=== PATIENT | male | born 1990 | race Hispanic/Latino ===

== ENCOUNTER 2018-09-26 06:32 | Emergency (ER) | payer OTHER ==
[2018-09-26 06:37] VITALS: BMI 23.0
--- NOTE | 2018-09-26 07:37 | ED PDOC ---
HPI: Psych/Substance Abuse Time Seen by Provider: 09/26/18 07:16 Chief Complaint (Nursing): Alcohol Ingestion Chief Complaint (Provider): Alcohol Ingestion History Per: Patient History/Exam Limitations: no limitations Onset/Duration Of Symptoms: Hrs (x 1) Current Symptoms Are (Timing): Still Present Suicide/Self Injury Attempted (Context): None Modifying Factor(s): Alcohol Additional Complaint(s): 28 year old male with no significant medical history presents to the ED via [facility] for evaluation. Patient admits to drinking tonight and wanted to go home. Denies fall, pain, LOC, shortness of breath, nausea and vomiting. PMD: none provided Past Medical History Reviewed: Historical Data, Nursing Documentation, Vital Signs Vital Signs: Last Vital Signs Temp 97.7 F 09/26/18 06:43 Pulse 113 H 09/26/18 06:43 Resp 16 09/26/18 06:43 BP 157/93 H 09/26/18 06:43 Pulse Ox 96 09/26/18 06:43 - Medical History PMH: No Chronic Diseases - Surgical History Surgical History: No Surg Hx - Family History Family History: States: Unknown Family Hx - Social History Current smoker - smoking cessation education provided: No Alcohol: Social Drugs: Cannabis - Immunization History Hx Tetanus Toxoid Vaccination: No Hx Influenza Vaccination: No Hx Pneumococcal Vaccination: No - Home Medications Home Medications: Ambulatory Orders Medication Instructions Recorded No Known Home Med 03/10/17 - Allergies Allergies/Adverse Reactions: Allergies Allergy/AdvReac Type Severity Reaction Status Date / Time No Known Allergies Allergy Unverified 03/10/17 20:58 Review of Systems ROS Statement: Except As Marked, All Systems Reviewed And Found Negative Constitutional: Negative for: Fever, Chills Cardiovascular: Negative for: Chest Pain Respiratory: Negative for: Cough, Shortness of Breath Gastrointestinal: Negative for: Nausea, Vomiting, Abdominal Pain, Diarrhea Physical Exam - Reviewed Nursing Documentation Reviewed: Yes Vital Signs Reviewed: Yes - Physical Exam Appears: Positive for: Non-toxic, No Acute Distress Head Exam: Positive for: ATRAUMATIC, NORMAL INSPECTION, NORMOCEPHALIC Skin: Positive for: Normal Color, Warm, Dry Eye Exam: Positive for: EOMI, Normal appearance, PERRL Neck: Positive for: Normal, Painless ROM, Supple Cardiovascular/Chest: Positive for: Regular Rate, Rhythm. Negative for: Murmur Respiratory: Positive for: Normal Breath Sounds. Negative for: Respiratory Distress Gastrointestinal/Abdominal: Positive for: Normal Exam, Soft. Negative for: Tenderness Back: Positive for: Normal Inspection Extremity: Positive for: Normal ROM (upper and lower extremities). Negative for: Deformity Neurologic/Psych: Positive for: Alert, Oriented (x 3). Negative for: Motor/Sensory Deficits - ECG O2 Sat by Pulse Oximetry: 96 (RA) Pulse Ox Interpretation: Normal - Progress ED Course And Treament: 1102: Pt. is aaox3. Tolerated PO. here to take pt. home. Is ambulating with no issues. accepts to take responsibility of pt. Medical Decision Making Medical Decision Makin:18 Impression: alcohol intoxication Initial Plan: --Patient is awake and in no distress with stable vitals. He will continue to be monitored in the ER pending sobriety. 09:02 --Alcohol serum Scribe Attestation: Documented by Sherry Cordero acting as a scribe for Cooper Vinson MD Provider Scribe Attestation: All medical record entries made by the Scribe were at my direction and personally dictated by me. I have reviewed the chart and agree that the record accurately reflects my personal performance of the history, physical exam, medical decision making, and the department course for this patient. I have also personally directed, reviewed, and agree with the discharge instructions and disposition. Disposition - Clinical Impression Clinical Impression: Alcohol abuse - Patient ED Disposition Is Patient to be Admitted: No Counseled Patient/Family Regarding: Studies Performed, Diagnosis, Need For Followup - Disposition Referrals: [facility] [Outside] Disposition: Routine/Home Disposition Time: 11:03 Condition: STABLE Instructions: Alcohol Use - When Is Drinking a Problem?
[2018-09-26 10:14] VITALS: RESP 18
[2018-09-26 10:21] VITALS: O2SAT 96
[2018-09-26 11:13] VITALS: BP 138/88; PULSE 91; TEMP 97.8
== END 2018-09-26 11:00 | disposition home or self-care (01) ==
LOC: H.ER 06:32
DX: F10.129 Alcohol abuse with intoxication, unspecified (principal)